=== PATIENT | male | born 1965 | race Caucasian/White ===

== ENCOUNTER 2016-12-06 12:53 | Emergency (ER) | payer BC ==
[2016-12-06 13:21] VITALS: BP 137/92
--- NOTE | 2016-12-06 14:28 | RAD ---
INDICATION: Back COMPARISON: None TECHNIQUE: Routine PA, lateral, and oblique imaging was performed . FINDINGS: Bones: There are no acute bony findings. There are minor arthritic changes consisting of bony spur formation about L4 and L5 with mild endplate sclerosis and facet arthropathy at L5-S1. Alignment: Normal Disc spaces: There is minor disc space narrowing L5-S1. The remaining disc spaces are well-maintained Soft tissues: There are no soft tissue abnormalities. IMPRESSION: MINOR DEGENERATIVE CHANGES. NO ACUTE FINDINGS.
--- NOTE | 2016-12-06 14:45 | UC ---
Back Pain HPI - HPI Summary HPI Summary: Patient presents to the with CC of lower back pain. Denies numbness, tingling, temperature or color changes. He denies injury. pain began 5 days ago and remains constant. Better with flexion and worse with movement. Thorough physical exam was performed, focusing on thoracic and lumbar special tests and ROM. Due to patient pain around injury, physical exam was limited. Limited ROM. Flip Test negative. Straight leg raise positive. Kernig test positive. Negative Babinksi. Hip flexion and extension, knee extension, dorsiflexion, great toe extension and plantar flexion intact. Rotating at hips limited d/t pain. Nerve roots L4-S2 reflexes intact. L1-S2 nerve root sensory intact. No saddle anesthesia. Gait normal. Denies B/B dysfunction. - History of Current Complaint Chief Complaint: UCBackPain Stated Complaint: LOWER BACK PAIN Time Seen by Provider: 12/06/16 13:50 Hx Obtained From: Patient Onset/Duration: Sudden Onset Timing: Constant Severity Initially: Moderate Pain Intensity: 7 Pain Scale Used: 0-10 Numeric Back Pain: Is Discrete @ - mid lower back Aggravating Factor(s): Movement Alleviating Factor(s): Rest, Position Associated Signs And Symptoms: Positive: Negative - Risk Factors AAA Risk Factors: Negative TAD Risk Factors: Negative Cauda Equina Risk Factors: Negative Epidural Abscess Risk Factors: Negative - Allergies/Home Medications Allergies/Adverse Reactions: Allergies Allergy/AdvReac Type Severity Reaction Status Date / Time No Known Allergies Allergy Verified 12/06/16 13:17 PMH/Surg Hx/FS Hx/Imm Hx Previously Healthy: Yes - Surgical History Surgical History: None - Social History Occupation: Employed Full-time Lives: With Family Alcohol Use: Occasionally Substance Use Type: None Smoking Status (MU): Never Smoked Tobacco Have You Smoked in the Last Year: No Review of Systems Constitutional: Negative Skin: Negative Respiratory: Negative Cardiovascular: Negative Gastrointestinal: Negative Motor: Decreased ROM Neurovascular: Negative Musculoskeletal: Arthralgia - low back pain Neurological: Negative Psychological: Negative Is Patient Immunocompromised?: No All Other Systems Reviewed And Are Negative: Yes Physical Exam Triage Information Reviewed: Yes Appearance: Well-Appearing, Ill-Appearing Vital Signs: Initial Vital Signs Temp 97.9 F 12/06/16 13:18 Pulse 91 12/06/16 13:18 Resp 16 12/06/16 13:18 BP 137/92 12/06/16 13:18 Pulse Ox 96 12/06/16 13:18 Eye Exam: Normal Dental Exam: Normal Neck exam: Normal Neck: Positive: Supple, Nontender Cardiovascular Exam: Normal Cardiovascular: Positive: RRR Musculoskeletal Exam: Normal Musculoskeletal: Positive: Strength Intact, ROM Intact - with pain Psychological: Positive: Normal Response To Family, Age Appropriate Behavior Skin Exam: Normal Back Pain Course/Dx - Course Course Of Treatment: Patient evaluated for low back pain. Patient sent to imaging. Xray negative for fracture or other acute findings. Soft tissue swelling noted over the . Patient given orthopedic follow up in 5-7 days. Encouraged Ibuprofen 600mg three times daily with meals for pain. Return precautions given. Educated patient regarding back injuries and healing time and the need for further imaging if discomfort is present for > 6 weeks. Given muscle relaxers for relief of pain. Patient OK with discharge and will follow up as directed. - Differential Dx/Diagnosis Differential Diagnosis/HQI/PQRI: Herniated Disc, Strain, Sprain Provider Diagnoses: Back pain - Acute Discharge - Discharge Plan Condition: Stable Disposition: HOME Prescriptions: Cyclobenzaprine TAB* [Flexeril TAB*] 10 mg PO BID PRN #14 tab PRN Reason: Pain Patient Education Materials: Muscle Strain (ED) Referrals: Abby RODRIGUEZ,Radha Taylor [Primary Care Provider] - Additional Instructions: Dx. Muscle Strain Ibuprofen 600mg three times daily for pain and inflammation. Flexeril: This medication is a muscle relaxant and can help relieve muscle spasms, muscle strain, or pain sensations. Flexeril can cause side effects that may impair your thinking or reactions. Be careful if you drive or do anything that requires you to be awake and alert. Avoid drinking alcohol, which can increase some of the side effects of Flexeril. Ibuprofen 600mg three times daily with meals for discomfort. Return to ED if symptoms worsen or fail to improve, notice worsening swelling, warmth or redness around the joint, develop fever, or pain is uncontrolled with OTC medications. Moist heat to the area for comfort. Warm showers or baths may improve symptoms. It is important to remain mobile as tolerated to prevent stiffening of the joints and delay healing. Follow up with your PCP. If symptoms remain for > 6 weeks, please seek special medical attention from an orthopedic physician.
== END 2016-12-06 14:52 | disposition home or self-care (01) ==
LOC: UCEAST 12:53
DX: M54.9 Dorsalgia, unspecified (principal)
CPT/HCPCS: 72110; 81003; 99212; G0463

== ENCOUNTER 2017-07-09 12:08 | Emergency (ER) | payer BC ==
[2017-07-09 12:39] VITALS: BP 187/122
[2017-07-09] MEDS ORDERED: Ibuprofen TAB* 200 MG PO ONE (13:27)
--- NOTE | 2017-07-09 13:27 | UC ---
Ear Complaint HPI - HPI Summary HPI Summary: C/O LEFT EAR PAIN RADIATING INTO LEFT JAW STARTING THIS AM. DENIES TRAUMA, FEVER , EAR D/C, COUGH, SORE THROAT, CP, SOB, N/V/D, ABDO PAIN, CHNAGE IN URINE OR BM. MED HX = NONE - History of Current Complaint Hx Obtained From: Patient Onset/Duration: Gradual Onset Severity Initially: Mild Severity Currently: Moderate Pain Intensity: 8 Pain Scale Used: 0-10 Numeric <Skyler Mercado - Last Filed: 07/09/17 21:34> <Lucie Montenegro - Last Filed: 07/10/17 05:13> - History of Current Complaint Chief Complaint: UCEar Stated Complaint: EAR PAIN Time Seen by Provider: 07/09/17 12:59 - Allergies/Home Medications Allergies/Adverse Reactions: Allergies Allergy/AdvReac Type Severity Reaction Status Date / Time No Known Allergies Allergy Verified 07/09/17 12:39 PMH/Surg Hx/FS Hx/Imm Hx - Surgical History Surgical History: None - Social History Alcohol Use: Occasionally Substance Use Type: None Smoking Status (MU): Never Smoked Tobacco Have You Smoked in the Last Year: No - Immunization History Most Recent Tetanus Shot: UTD <Skyler Mercado - Last Filed: 07/09/17 21:34> Review of Systems Constitutional: Negative Skin: Negative Eyes: Negative ENT: Ear Ache Respiratory: Negative Cardiovascular: Negative Gastrointestinal: Negative Genitourinary: Negative Motor: Negative Neurovascular: Negative Musculoskeletal: Negative Neurological: Negative Psychological: Negative Is Patient Immunocompromised?: No All Other Systems Reviewed And Are Negative: Yes <Skyler Mercado - Last Filed: 07/09/17 21:34> Physical Exam - Summary Physical Exam Summary: NO INDICATION OF MASTOIDITIS. JAW, EAR, MASTOID NTTP. NO ERYTHEMA, EXTRA WARMTH , SWELLING, TO LEFT SIDE OF HEAD, FACE, EAR, MASTOID. NO EAR DRAINAGE. INTRAORAL EXAM NML. Triage Information Reviewed: Yes Appearance: Well-Appearing Vital Signs: Initial Vital Signs Temp 98.8 F 07/09/17 12:35 Pulse 87 07/09/17 12:35 Resp 20 07/09/17 12:35 BP 187/122 07/09/17 12:35 Pulse Ox 97 07/09/17 12:35 Vital Signs Reviewed: Yes Eye Exam: Normal ENT: Positive: Pharynx normal, TMs normal - RIGHT, TM red - LEFT. Negative: Tonsillar exudate, Muffled voice Neck exam: Normal Respiratory Exam: Normal Cardiovascular Exam: Normal Abdominal Exam: Normal Musculoskeletal Exam: Normal Neurological Exam: Normal Psychological Exam: Normal Skin Exam: Normal <RogelioSkyler - Last Filed: 07/09/17 21:34> Vital Signs: Initial Vital Signs Temp 98.8 F 07/09/17 12:35 Pulse 87 07/09/17 12:35 Resp 20 07/09/17 12:35 BP 187/122 07/09/17 12:35 Pulse Ox 97 07/09/17 12:35 <Lucie Montenegro - Last Filed: 07/10/17 05:13> Ear Complaint Course/Dx - Course Course Of Treatment: AUGMENTIN. - Differential Dx/Diagnosis Provider Diagnoses: otitis media <Skyler Mercado - Last Filed: 07/09/17 21:34> Discharge - Sign-Out/Discharge Documenting (check all that apply): Discharge/Admit/Transfer - Billing Disposition and Condition Condition: STABLE Disposition: HOME <Skyler Mercado - Last Filed: 07/09/17 21:34> - Billing Disposition and Condition Condition: STABLE Disposition: HOME <Lucie Montenegro - Last Filed: 07/10/17 05:13> - Discharge Plan Condition: Stable Disposition: HOME Prescriptions: Amoxicillin/Clavulanate TAB* [Augmentin TAB 875*] 875 mg PO BID #20 tab Patient Education Materials: Ear Infection (ED) Referrals: Michael Mcghee MD [Primary Care Provider] - Additional Instructions: Follow up with primary care for evaluation of possible hypertension. Attestation Statement User Type: Provider - I was available for consult. This patient was seen by the [facility]. The patient was not presented to, seen by, or examined by me. -Jennifer <Lucie Montenegro - Last Filed: 07/10/17 05:13>
[2017-07-09] MEDS ORDERED: Acetaminophen TAB* 325 MG PO ONE (13:36)
== END 2017-07-09 13:44 | disposition home or self-care (01) ==
LOC: UCEAST 12:08
DX: H66.92 Otitis media, unspecified, left ear (principal)
CPT/HCPCS: 99212; A9270-GY; G0463